=== PATIENT | female | born 1935 | race Caucasian/White ===

== ENCOUNTER 2022-06-12 20:37 | Emergency (ER) | payer BC, MEDICARE ==
[~2022-06-12] VITALS: Ht 162.6 cm; Wt 86.4 kg
[~2022-06-12 20:37] MED LIST: ASPI-1009 PO; ATOR20TA PO; CALTRATE 600 +1 EACH PO; DIPH-423 PO; MULT1TAB PO; RALO60TA55 PO; SYNTHROID PO; VERA120T19 PO
[2022-06-12 20:58] VITALS: BP 147/86
== END 2022-06-13 01:06 | disposition left against medical advice (07) ==
LOC: ER 20:38
DX: J00 Acute nasopharyngitis [common cold] (principal); R05.9 Cough, unspecified; R09.89 Other specified symptoms and signs involving the circulatory and respiratory systems; Z53.21 Procedure and treatment not carried out due to patient leaving prior to being seen by health care provider